=== PATIENT | female | born 1955 | race Caucasian/White ===

== ENCOUNTER → 2021-02-24 10:54 | Outpatient (CLI) | payer OTHER, SELFPAY ==
[2021-02-24 11:55] LABS: COVID19 -Nasal RAPID Negative (Negative)
== END ==
PROVIDERS: PCP Family Medicine; Referring Provider Internal Medicine; Visit Provider Internal Medicine
DX: Z20.822 Contact with and (suspected) exposure to COVID-19 (principal)
CPT/HCPCS: 87635; C9803

== ENCOUNTER → 2021-02-24 11:02 | Outpatient (CLI) | payer OTHER, SELFPAY ==
--- NOTE | 2021-02-25 16:20 | PM.PFT.1 ---
Pulmonary Function Test Referral & Results Date Patient Seen: 02/24/21 Requesting provider: Kelly Aldana Results: The spirometry demonstrates an FVC of 2.95 L which is 93% of predicted. The FEV1 was measured at 1.82 L which is 75% of predicted. The FEV1/FVC ratio was 62 which is 80% of predicted. Following the administration of bronchodilator there was no appreciable change. Lung volumes show an SVC of 3.15 L which is 106% of predicted. The diffusing capacity was measured at 10.60 which is 43% of predicted. No hemoglobin value was provided, so no correction for potential anemia could be made, if appropriate. The maximum voluntary ventilation was reduced Interpretation: This study demonstrates moderate obstructive lung disease based on reduction FEV1. There is no evidence of significant benefit following bronchodilator administration Lung volumes are normal Diffusing capacity is severely reduced suggesting significant disease at the capillary alveolar level
== END ==
PROVIDERS: PCP Family Medicine; Referring Provider Family Medicine; Visit Provider Family Medicine
DX: R06.02 Shortness of breath (principal); Z20.822 Contact with and (suspected) exposure to COVID-19
CPT/HCPCS: 87635; 94060; 94726; 94729; C9803

== ENCOUNTER → 2021-07-22 08:43 | Outpatient (CLI) | payer OTHER, SELFPAY ==
[2021-07-22 09:38] LABS: COVID19 -Nasal RAPID Negative (Negative)
== END ==
PROVIDERS: PCP Family Medicine; Visit Provider Nurse Practitioner
DX: Z20.822 Contact with and (suspected) exposure to COVID-19 (principal); R09.81 Nasal congestion
CPT/HCPCS: 87635

== ENCOUNTER → 2022-04-01 16:43 | Outpatient (CLI) | payer MEDICARE, SELFPAY ==
[2022-04-01 17:28] LABS: Influenza A - CEPHEID Flu A NEGATIVE (NEGATIVE); Influenza B - CEPHEID Flu B NEGATIVE (NEGATIVE)
== END ==
PROVIDERS: PCP Family Medicine; Visit Provider Physician Assistant
DX: J06.9 Acute upper respiratory infection, unspecified (principal)
CPT/HCPCS: 87502

== ENCOUNTER → 2023-02-17 09:12 | Outpatient (CLI) | payer MEDICARE, SELFPAY ==
[2023-02-17 09:49] LABS: Hematocrit 40.8 % (36-46); Hemoglobin 13.9 g/dL (12.0-16.0); Mean Corpuscular HGB Conc 34.2 % (30-36); Mean Corpuscular Volume 99.5 fL (80-100); Platelet Count 293 X10^3/uL (150-400); Red Cell Distribution Width 12.5 % (11.6-14.8); White Blood Cell Count 8.3 X10^3/uL (4.5-11.0)
[2023-02-17 10:05] LABS: Alanine Aminotransferase 20 IU/L (<35); Albumin 4.4 g/dL (3.5-5.0); Albumin Globulin Ratio 1.6 (1.0-2.8); Alkaline Phosphatase 99 U/L (38-126); Aspartate Aminotransferase 21 IU/L (14-36); BUN Creatinine Ratio 23.1 (6-22); Bilirubin Total 0.6 mg/dL (0.2-1.3); Blood Urea Nitrogen 12 mg/dL (7-17); Calcium 9.3 mg/dL (8.4-10.2); Carbon Dioxide 28 mmol/L (22-32); Chloride 101 mmol/L (98-107); Cholesterol 184 mg/dL (140-199); Estimated Glomerular Filt Rate > 60 mL/min (>60); Globulin 2.7 g/dL (1.7-4.1); Glucose 104 mg/dL (80-110); HDL Cholesterol 68 mg/dL (40-60); HEMOLYSIS < 15 (0-50); LDL Cholesterol Calculated 90 mg/dL (<100); Potassium 3.9 mmol/L (3.4-5.1); Sodium 138 mmol/L (137-145); Total Protein 7.1 g/dL (6.3-8.2); Triglycerides 131 mg/dL (35-150)
[2023-02-17 10:56] LABS: Vitamin B12 689 pg/mL (239-931)
== END ==
PROVIDERS: PCP Family Medicine; Referring Provider Family Medicine; Visit Provider Family Medicine
DX: E53.8 Deficiency of other specified B group vitamins (principal); I10 Essential (primary) hypertension; I69.398 Other sequelae of cerebral infarction; E78.70 Disorder of bile acid and cholesterol metabolism, unspecified
CPT/HCPCS: 36415; 80053; 80061; 82607; 85027

== ENCOUNTER → 2023-12-26 08:13 | Outpatient (CLI) | payer MEDICARE, SELFPAY ==
[2023-12-26 09:16] LABS: Alanine Aminotransferase 16 IU/L (<35); Albumin 4.4 g/dL (3.5-5.0); Albumin Globulin Ratio 1.6 (1.0-2.8); Alkaline Phosphatase 90 U/L (38-126); Aspartate Aminotransferase 21 IU/L (14-36); Bilirubin Total 0.5 mg/dL (0.2-1.3); Blood Urea Nitrogen 11 mg/dL (7-17); Calcium 9.5 mg/dL (8.4-10.2); Carbon Dioxide 27 mmol/L (22-32); Chloride 105 mmol/L (98-107); Estimated Glomerular Filt Rate > 60 mL/min (>60); Globulin 2.7 g/dL (1.7-4.1); Glucose 99 mg/dL (80-110); HEMOLYSIS < 15 (0-50); Potassium 3.8 mmol/L (3.4-5.1); Sodium 139 mmol/L (137-145); Total Protein 7.1 g/dL (6.3-8.2)
[2023-12-27 06:52] LABS: Cholesterol HDL Ratio 3.3 ratio (0.0-4.4); Cholesterol,Total 169 mg/dL (100-199); HDL Cholesterol 52 mg/dL (>39); LDL Cholesterol Cal 85 mg/dL (0-99); Triglycerides 188 mg/dL (0-149); VLDL Cholesterol Cal 32 mg/dL (5-40)
== END ==
PROVIDERS: PCP Family Medicine; Referring Provider Family Medicine; Visit Provider Family Medicine
DX: E78.00 Pure hypercholesterolemia, unspecified (principal); I10 Essential (primary) hypertension
CPT/HCPCS: 36415; 80053; 80061

== ENCOUNTER 2024-07-16 09:10 | Emergency (ER) | payer MEDICARE, SELFPAY ==
[2024-07-16] VITALS (17 sets, daily range): BP systolic 130–151; BP diastolic 63–83; PULSE 77–91; RESP 14; TEMP 36.7; O2SAT 94–98; BMI 25.0
--- NOTE | 2024-07-16 09:18 | DI.RAD.S_ITS ---
PROCEDURE: XR SHOULDER LT 2V INDICATIONS: fall/pain/bruising TECHNIQUE: 2 views of the shoulder were acquired. COMPARISON: None. FINDINGS: Mildly displaced acute appearing fracture of mild diffuse osteopenia. Mild degenerative changes left acromioclavicular and glenohumeral joints with joint space narrowing. No dislocation or high attenuation soft tissue foreign body. Artifacts from overlying clothing and other extrinsic artifacts partially limit radiographic detail. Bones: No fractures or dislocations. No suspicious bony lesions. Visualized ribs appear intact. Soft tissues: No suspicious soft tissue calcifications. IMPRESSION: Acute appearing fracture left distal clavicle. Follow-up suggested Dictated by: Kenneth Esposito M.D. on 07/16/2024 at 10:08 Approved by: Kenneth Esposito M.D. on 07/16/2024 at 10:15
--- NOTE | 2024-07-16 09:54 | ED.FALL ---
HPI - Fall General Chief Complaint: Fall Stated Complaint: fell yesterday left shoulder Time Seen by Provider: 07/16/24 09:37 Source: patient Mode of arrival: Wheelchair Limitations: no limitations History of Present Illness HPI Narrative: 69-year-old female history of hypertension, dyslipidemia, prior stroke with left upper extremity deficit on aspirin daily, COPD who presents after a fall yesterday. Patient states her family left town to travel to [facility]. She had gotten up was walking through 1 of the rooms and looked behind her to check of the dogs were behind her and lost her balance and fell onto her left side hitting her left head and shoulder. Patient states she has bruising of the left head and I, has pain at the left shoulder but can move her arm. She also has some mild pain in left hip and quite a bit of bruising but states she can move it very well. Patient has been able to ambulate since then. She states no loss of consciousness had a mild headache afterwards, no neck pain, no vision changes no chest pain or shortness of breath. No nausea or vomiting. Patient denies any other GI or urinary symptoms. She does take an aspirin daily denies any other anticoagulants. Does have chronic weakness and some contraction of the left upper extremity. Patient states her family is out of town but her daughter has been informed and has been in touch with multiple people to check on her. Patient drove herself today initially went to the walk-in clinic and was referred here. Related Data Home Medications Medication Instructions Recorded Confirmed alprazolam 0.5 mg tablet mg PO 07/16/24 07/16/24 amlodipine 5 mg tablet 5 mg PO DAILY 07/16/24 07/16/24 bupropion HCl 300 mg 24 hr tablet, 300 mg PO DAILY 07/16/24 07/16/24 extended release fluoxetine 10 mg capsule 10 mg PO DAILY 07/16/24 07/16/24 pantoprazole 40 mg tablet,delayed 40 mg PO DAILY 07/16/24 07/16/24 release pravastatin 20 mg tablet 20 mg PO DAILY 07/16/24 07/16/24 Allergies Allergy/AdvReac Type Severity Reaction Status Date / Time No Known Drug Allergies Allergy Verified 07/16/24 09:17 Review of Systems Review of Systems ROS Unobtainable: All systems reviewed & are unremarkable except as noted in HPI and below Patient History Social History Smoking Status: Former smoker Smoking Status: Former smoker alcohol intake frequency: holidays/special occasions only Substance Use Type: does not use Exam Narrative Exam Narrative: GEN: Patient appears in mild distress. HEAD: Patient has some left temporal ecchymosis as well as left periorbital ecchymosis, no raccoon/Iyer sign. NECK: Nontender, painless range of motion, trachea midline Negative Nexus criteria, negative line tenderness, distracting injury, altered mental status, neuro deficit, recent EtOH. EYES: PERRLA, EOMI ENT: External inspection normal except for periorbital ecchymosis, no significant swelling of the lid, trachea is midline, TM's are normal no hemotypanum, Nares are clear, no septal hematoma, no dental or oral injury, airway is normal and with normal occlusion, No bony tenderness RESP: Chest is nontender and has symmetric movement, no ecchymosis, breath sounds are normal no crackles, wheezes or rales CVS: Heart sounds are normal, no murmur noted, No JVD. ABG/GI: Nontender, soft, normal bowel sounds, no distention, no organomegaly, pelvic rock is negative NEURO: Oriented AOx3, neuro is grossly intact, sensation and motor is normal all 4 extremities moving, cranial nerves II through XII are intact, GCS is 15 PSYCH: Normal mood and affect SKIN: No lacerations appreciated patient does have ecchymosis of the left forehead periorbital, left clavicle region and hip., warm and dry, no crepitus and without decubitus BACK: No CVA tenderness, no vertebral tenderness, no step-off's, no crepitus EXT: Patient has ecchymosis of the left clavicle and AC region, she was good range of motion she is tender over the distal clavicle,, hips are nontender, no pedal edema, normal color and temperature, normal range of motion of extremities with normal tendon exam, 2+ pulses in all four extremities Initial Vital Signs Initial Vital Signs: Vital Signs Temperature 98.0 F 07/16/24 09:11 Pulse Rate 85 07/16/24 09:11 Respiratory Rate 14 07/16/24 09:11 Blood Pressure 145/76 H 07/16/24 09:11 Pulse Oximetry 96 07/16/24 09:11 Oxygen Delivery Method Room Air 07/16/24 09:11 Course Orders Ordered: ED Orders 07/16/24 09:18 XR shoulder LT min 2V Stat 07/16/24 10:04 CT cervical spine wo con Stat CT head/brain wo con Stat 07/16/24 10:09 CT facial bones wo con Stat 07/16/24 14:00 CT head/brain wo con Stat Vital Signs Vital signs: Vital Signs - 8 hr 07/16/24 09:11 07/16/24 09:40 07/16/24 09:40 Temperature 98.0 F Pulse Rate 85 90 Respiratory Rate 14 Blood Pressure 145/76 H 141/75 H Pulse Oximetry 96 94 Oxygen Delivery Method Room Air 07/16/24 10:00 07/16/24 10:22 07/16/24 10:22 Temperature Pulse Rate 88 83 Respiratory Rate Blood Pressure 149/70 H Pulse Oximetry 95 94 Oxygen Delivery Method 07/16/24 10:30 07/16/24 10:30 07/16/24 11:00 Temperature Pulse Rate 79 84 Respiratory Rate Blood Pressure 137/63 Pulse Oximetry 95 94 Oxygen Delivery Method 07/16/24 11:00 07/16/24 11:30 07/16/24 11:30 Temperature Pulse Rate 82 Respiratory Rate Blood Pressure 132/68 136/63 Pulse Oximetry 95 Oxygen Delivery Method 07/16/24 11:40 07/16/24 12:00 07/16/24 12:00 Temperature Pulse Rate 86 Respiratory Rate Blood Pressure 151/67 H 136/83 Pulse Oximetry 96 Oxygen Delivery Method 07/16/24 12:30 07/16/24 12:31 07/16/24 12:31 Temperature Pulse Rate 77 85 Respiratory Rate Blood Pressure 130/68 Pulse Oximetry 97 97 Oxygen Delivery Method 07/16/24 13:00 07/16/24 13:00 07/16/24 13:30 Temperature Pulse Rate 83 90 Respiratory Rate Blood Pressure 133/77 Pulse Oximetry 97 98 Oxygen Delivery Method 07/16/24 13:30 07/16/24 14:30 07/16/24 14:35 Temperature Pulse Rate 88 87 Respiratory Rate Blood Pressure 143/75 H Pulse Oximetry 96 96 Oxygen Delivery Method 07/16/24 14:35 07/16/24 15:00 07/16/24 15:00 Temperature Pulse Rate 91 H Respiratory Rate Blood Pressure 139/70 145/67 H Pulse Oximetry 96 Oxygen Delivery Method 07/16/24 15:30 07/16/24 15:30 Temperature Pulse Rate 87 Respiratory Rate Blood Pressure 144/72 H Pulse Oximetry 94 Oxygen Delivery Method MDM - Fall Imaging Data Extremity x-ray #1: Radiologist's Impression: Close Head CT (Signed) KevinDaniel 07/16/[address] (Signed) Kenneth Esposito 07/16/[address] (Signed) Kenneth Esposito 07/16/[address] (Signed) KevinDaniel 07/16/24 Shoulder X-Ray (Signed) Kenneth Esposito 07/16/24 PFT Result 02/24/21 [place] [address] XRay Report Signed Patient: Anna Pinzon MR#: [id number] : 1955 Acct:[id number] Age/Sex: 69 / F Date of Service: 07/16/24 Loc: ED Accession Number: [id number] Procedure: XR shoulder LT min 2V Ordering Provider: Corry Aguila D.O. PROCEDURE: XR SHOULDER LT 2V INDICATIONS: fall/pain/bruising TECHNIQUE: 2 views of the shoulder were acquired. COMPARISON: None. FINDINGS: Mildly displaced acute appearing fracture of mild diffuse osteopenia. Mild degenerative changes left acromioclavicular and glenohumeral joints with joint space narrowing. No dislocation or high attenuation soft tissue foreign body. Artifacts from overlying clothing and other extrinsic artifacts partially limit radiographic detail. Bones: No fractures or dislocations. No suspicious bony lesions. Visualized ribs appear intact. Soft tissues: No suspicious soft tissue calcifications. IMPRESSION: Acute appearing fracture left distal clavicle. Follow-up suggested Dictated by: Kenneth Esposito M.D. on 07/16/2024 at 10:08 Approved by: Kenneth Esposito M.D. on 07/16/2024 at 10:15 CT scan - head: Radiologist's Impression: Close Head CT (Signed) Daniel Brown 07/16/[address] (Signed) Kenneth Esposito 07/16/[address] (Signed) Kenneth Esposito 07/16/[address] (Signed) Daniel Brown 07/16/24 Shoulder X-Ray (Signed) Kenneth Esposito - 07/16/24 PFT Result 02/24/21 [facility] [address] [address] [address] Scan Report Signed Patient: Anna Pinzon MR#: [id number] : 1955 Acct:[id number] Age/Sex: 69 / F Date of Service: 07/16/24 Loc: ED Accession Number: [id number] Procedure: CT head/brain wo con Ordering Provider: Corry Aguila D.O. PROCEDURE: CT HEAD/BRAIN WO CON INDICATIONS: repeat head CT TECHNIQUE: Noncontrast 4.5 mm thick angled axial sections acquired from the foramen magnum to the vertex, with coronal and sagittal reformats. For radiation dose reduction, the following was used: automated exposure control, adjustment of mA and/or kV according to patient size. COMPARISON: [facility], CT, CT HEAD/BRAIN WO CON, 07/16/2024, 10:16. FINDINGS: Image quality: Diagnostic. CSF spaces: Basal cisterns are patent. No extra-axial fluid collections. The ventricles are symmetric in size and shape. Brain: Persistent hyperdensity involving left frontal lobe cortex concerning for contusion. This is not significantly changed from earlier study. No new area of abnormal hyperdensity is seen. Old infarction is again noted in right basal ganglia. There is cerebral volume loss for age, with resultant ventricular and sulcal prominence. There are periventricular and deep white matter chronic small vessel ischemic changes. There is intracranial internal carotid artery atherosclerosis. Skull and face: Left frontal scalp hematoma is again seen. Calvarium and visualized facial bones appear intact, without suspicious lesions. Sinuses: Visualized sinuses and mastoids are clear. IMPRESSION: 1. Stable appearance of subtle hyperdensity involving left frontal lobe concerning for parenchymal contusion. No new area of intracranial bleed. 2. Stable old infarction in right basal ganglia. No midline shift or significant mass effect. 3. Left frontal scalp hematoma unchanged from earlier study. No gross acute skull fracture. Dictated by: Daniel Brown M.D. on 07/16/2024 at 14:21 Approved by: Danile Brown M.D. on 07/16/2024 at 14:[address]: Radiologist's Impression: Anna Pinzon??69??F??1955 ? Allergy/Adv: No Known Drug Allergies Close Head CT (Signed) KevinDaniel - 07/16/[address] (Signed) VaibhavKenneth - 07/16/[address] (Signed) Kenneth Esposito - 07/16/[address] (Signed) Daniel Brown - 07/16/24 Shoulder X-Ray (Signed) VaibhavKenneth - 07/16/24 PFT Result 02/24/21 [place] [address] CT Scan Report Signed Patient: Anna Pinzon MR#: [id number] : 1955 Acct:[id number] Age/Sex: 69 / F Date of Service: 07/16/24 Loc: ED Accession Number: [id number] Procedure: CT head/brain wo con Ordering Provider: Corry Aguila D.O. PROCEDURE: CT HEAD/BRAIN WO CON INDICATIONS: fall, hit head bruising face, eye on aspirin TECHNIQUE: Noncontrast 4.5 mm thick angled axial sections acquired from the foramen magnum to the vertex, with coronal and sagittal reformats. For radiation dose reduction, the following was used: automated exposure control, adjustment of mA and/or kV according to patient size. COMPARISON: None. FINDINGS: Several small 2 mm-3 mm foci of high attenuation in the left frontal lobe suspicious for parenchymal contusions or small subarachnoid blood, rarely calcifications (most notably series 2, image 21). Hounsfield units approximately 50-60 correlate with blood. There is asymmetric prominence of the left frontal gyri laterally relative to the right which is most likely related to volume loss from a chronic right external capsule, marie radiata infarct, however rarely the asymmetry could be related to an underlying left frontal mass lesion and MRI without and with contrast would be useful for further evaluation. Associated minimal midline shift towards the right of 2 mm. Left anterolateral frontal soft tissue scalp swelling/hematoma 1 cm depth. Image quality: Diagnostic. CSF spaces: Basal cisterns are patent. No extra-axial fluid collections. Sinuses: Visualized sinuses and mastoids are clear. IMPRESSION: Several small foci of high attenuation in the left frontal lobe suspicious for parenchymal contusions, small subarachnoid blood, rarely parenchymal calcifications. Follow-up suggested. Asymmetric prominence of the left frontal gyri as discussed above, most likely related to volume loss from a chronic right external capsule infarct, however rarely an underlying left frontal mass lesion could give this appearance and MRI without and with contrast would be useful for further evaluation. Left frontal soft tissue scalp swelling/hematoma. No CT evidence of subdural or epidural hematoma. Dictated by: Kenneth Esposito M.D. on 07/16/2024 at 10:31 Approved by: Kenneth Esposito M.D. on 07/16/2024 at 10:53 CT - cervical spine: Radiologist's Impression: Anna Pinzon??69??F??1955 ? Allergy/Adv: No Known Drug Allergies Close Head CT (Signed) Daniel Brown 07/16/[address] (Signed) Kenneth Esposito 07/16/[address] (Signed) Kenneth Esposito 07/16/[address] (Signed) Daniel Brown 07/16/24 Shoulder X-Ray (Signed) Kenneth Esposito - 07/16/24 PFT Result 02/24/21 [place] [address] CT Scan Report Signed Patient: Anna Pinzon MR#: [id number] : 1955 Acct:[id number] Age/Sex: 69 / F Date of Service: 07/16/24 Loc: ED Accession Number: [id number] Procedure: CT head/brain wo con Ordering Provider: Corry Aguila D.O. PROCEDURE: CT HEAD/BRAIN WO CON INDICATIONS: fall, hit head bruising face, eye on aspirin TECHNIQUE: Noncontrast 4.5 mm thick angled axial sections acquired from the foramen magnum to the vertex, with coronal and sagittal reformats. For radiation dose reduction, the following was used: automated exposure control, adjustment of mA and/or kV according to patient size. COMPARISON: None. FINDINGS: Several small 2 mm-3 mm foci of high attenuation in the left frontal lobe suspicious for parenchymal contusions or small subarachnoid blood, rarely calcifications (most notably series 2, image 21). Hounsfield units approximately 50-60 correlate with blood. There is asymmetric prominence of the left frontal gyri laterally relative to the right which is most likely related to volume loss from a chronic right external capsule, marie radiata infarct, however rarely the asymmetry could be related to an underlying left frontal mass lesion and MRI without and with contrast would be useful for further evaluation. Associated minimal midline shift towards the right of 2 mm. Left anterolateral frontal soft tissue scalp swelling/hematoma 1 cm depth. Image quality: Diagnostic. CSF spaces: Basal cisterns are patent. No extra-axial fluid collections. Sinuses: Visualized sinuses and mastoids are clear. IMPRESSION: Several small foci of high attenuation in the left frontal lobe suspicious for parenchymal contusions, small subarachnoid blood, rarely parenchymal calcifications. Follow-up suggested. Asymmetric prominence of the left frontal gyri as discussed above, most likely related to volume loss from a chronic right external capsule infarct, however rarely an underlying left frontal mass lesion could give this appearance and MRI without and with contrast would be useful for further evaluation. Left frontal soft tissue scalp swelling/hematoma. No CT evidence of subdural or epidural hematoma. Dictated by: Kenneth Esposito M.D. on 07/16/2024 at 10:31 Approved by: eKnneth Esposito M.D. on 07/16/2024 at 10:[address]: Radiologist's Impression: Close Head CT (Signed) Daniel Brown - 07/16/[address] (Signed) Kenenth Esposito 07/16/[address] (Signed) Kenneth Esposito 07/16/[address] (Signed) Daniel Brown - 07/16/24 Shoulder X-Ray (Signed) Kenneth Esposito - 07/16/24 PFT Result 02/24/21 [place] [address] CT Scan Report Signed Patient: Anna Pinzon MR#: [id number] : 1955 Acct:[id number] Age/Sex: 69 / F Date of Service: 07/16/24 Loc: ED Accession Number: [id number] Procedure: CT facial bones wo con Ordering Provider: Corry Aguila D.O. PROCEDURE: CT FACIAL BONES WO CON INDICATIONS: periorbital ecchymosis, trauma, fall TECHNIQUE: Noncontrast 2.5 mm thick axial images acquired from the mandible through the frontal sinuses, with coronal and sagittal reformatting. For radiation dose reduction, the following was used: automated exposure control, adjustment of mA and/or kV according to patient size. COMPARISON: None. FINDINGS: Left anterior frontal soft tissue scalp swelling/hematoma 1 cm depth. Image quality: Excellent. There are some beam hardening artifacts related to metallic dental hardware. There Bones and teeth: Orbital jonas are intact. Sinus jonas show no fracture or deformity. Nasal bones and septum are intact. Visualized portions of the mandible demonstrate no fractures or subluxation. Zygomatic arches are intact. Pterygoid plates are intact. Visualized portions of the skull base and auditory canals are intact. Sinuses: Mild mucoperiosteal thickening with frothy material in the left sphenoid sinus without air-fluid level to suggest acute sinusitis. 4 mm round retention cyst or polyp left maxillary sinus. Mastoid air cells are aerated. Soft tissues: No edema, masses, or fluid collections. No enlarged lymph nodes. No soft tissue lacerations or debris. IMPRESSION: Left anterior frontal soft tissue scalp swelling/hematoma 1 cm depth. Mild mucoperiosteal thickening with frothy material left sphenoid sinus without air-fluid level. No CT evidence of fracture. Dictated by: Kenneth Esposito M.D. on 07/16/2024 at 10:54 Approved by: Kenneth Esposito M.D. on 07/16/2024 at 11:09 MDM Narrative Medical decision making narrative: 69-year-old female ground level fall approximately 12+ hours ago patient has appears to be a left clavicle fracture on imaging, no loss of consciousness does have quite a bit of bruising periorbital end of her left temporal region. She takes an aspirin daily but no other anticoagulants head CT and CT C-spine were obtained as well as facial bones. Initial head CT shows several small foci concerning for bleed, asymmetric prominence left frontal gyri left frontal scalp hematoma/swelling. CT cervical spine shows no acute change moderate of degenerative disc disease throughout notably at C5-6 and C6-7. Moderate dextroscoliosis of the thoracic spine partially visualized. Facial bone CT shows left anterior frontal tissue scalp swelling hematoma 1 cm depth mild mucoperiosteal thickening frothy material left sphenoid sinus without air-fluid level no evidence of fracture. Shoulder x-ray shows acute appearing fracture left distal clavicle. Patient was placed in a sling for her clavicle fracture. 1106: Rads called with head CT results some small foci concerning for parenchymal bleed that are 2 mm versus small subarachnoid. They do note some asymmetry that is all in the left side as well as an old right infarct. 2 mm midline shift is noted. They note that there may just be some asymmetrical changes but would recommend an MR at some point to evaluate for mass or other underlying change outside of the small foci of potential bleed. 1131, spoke with coordinator [facility]. Images pushed to [facility], consult with Neurosurgery. Waiting call back. 1150: Spoke with Neurosurgery, Dr. Jackson at [facility] reviewed images, would recommend 4 hour repeat if no acute changes patient can discharge but hold aspirin for 5 days. Discussed concerns from Radiology about asymmetry on the left, he states this looks like normal post bleed changes and does not feel that MR is required. Updated with patient she feels comfortable this plan. She was friends at bedside her daughter is also on the phone during this discussion. Repeat head CT shows no acute change or worsening changes. Appears stable. Patient has not had any other new changes here in the department. Discussed with patient she feels comfortable with discharge home discussed report from initial about concern for MR at some point, also discussed neurosurgery thought this was typical changes secondary to bleed so would recommend follow up for repeat head CT to make sure resolution of changes. If necessary can follow up with primary care for MR if that has not occurred. Discussed all these findings with patient. Discussed return precautions. She does have someone spinning in the night with her. She is aware to hold her aspirin any NSAIDs for the next 5 days. Discharge Plan Departure Patient Disposition: Home Clinical Impression: Periorbital ecchymosis of left eye, Head injury Fracture, clavicle Qualifiers: Encounter type: initial encounter Fracture type: closed Laterality: left Instructions: DI for Clavicle Fracture-Adult, Closed Head Injury Activity Restrictions/Additional Instructions: Your imaging showed 2 small areas of bleed on the left frontal region as well as some asymmetry, I spoke with Neurosurgery about this and on your repeat head CT there are no new changes. This means you had a small intraparenchymal bleed, hold your aspirin for the next 5 days,no other anticoagulants and I would avoid NSAIDs for the next 5 days as well. Your initial head CT radiology was concerned about some asymmetry and recommended an MRI. I discussed this with the neurosurgeon who said the asymmetry was expected with a small amount of bleed and that you did not require an MRI for follow-up. You have a left clavicle fracture, you can use sling as needed. Follow up with your physician but this will take about 8-12 weeks to fully heal. You can take Tylenol up to a 1000 mg every 6 hours as needed for pain. Please return for any new or worsening headaches, any new bleeding or bruising, sudden vision changes, numbness tingling or weakness, difficulty with speech, vomiting, difficulty with ambulation or other or new concerning changes. Prescriptions: No Action pantoprazole 40 mg tablet,delayed release (DR/EC) 40 mg PO DAILY bupropion HCl 300 mg tablet extended release 24 hr 300 mg PO DAILY pravastatin 20 mg tablet 20 mg PO DAILY fluoxetine 10 mg capsule 10 mg PO DAILY amlodipine 5 mg tablet 5 mg PO DAILY alprazolam 0.5 mg tablet PO Referrals: Kelly Aldana MD [Primary Care Provider] - Stand Alone Forms: Patient Portal/API
--- NOTE | 2024-07-16 10:04 | DI.CT.S_ITS ---
PROCEDURE: CT HEAD/BRAIN WO CON INDICATIONS: fall, hit head bruising face, eye on aspirin TECHNIQUE: Noncontrast 4.5 mm thick angled axial sections acquired from the foramen magnum to the vertex, with coronal and sagittal reformats. For radiation dose reduction, the following was used: automated exposure control, adjustment of mA and/or kV according to patient size. COMPARISON: None. FINDINGS: Several small 2 mm-3 mm foci of high attenuation in the left frontal lobe suspicious for parenchymal contusions or small subarachnoid blood, rarely calcifications (most notably series 2, image 21). Hounsfield units approximately 50-60 correlate with blood. There is asymmetric prominence of the left frontal gyri laterally relative to the right which is most likely related to volume loss from a chronic right external capsule, marie radiata infarct, however rarely the asymmetry could be related to an underlying left frontal mass lesion and MRI without and with contrast would be useful for further evaluation. Associated minimal midline shift towards the right of 2 mm. Left anterolateral frontal soft tissue scalp swelling/hematoma 1 cm depth. Image quality: Diagnostic. CSF spaces: Basal cisterns are patent. No extra-axial fluid collections. Sinuses: Visualized sinuses and mastoids are clear. IMPRESSION: Several small foci of high attenuation in the left frontal lobe suspicious for parenchymal contusions, small subarachnoid blood, rarely parenchymal calcifications. Follow-up suggested. Asymmetric prominence of the left frontal gyri as discussed above, most likely related to volume loss from a chronic right external capsule infarct, however rarely an underlying left frontal mass lesion could give this appearance and MRI without and with contrast would be useful for further evaluation. Left frontal soft tissue scalp swelling/hematoma. No CT evidence of subdural or epidural hematoma. Dictated by: Kenneth Esposito M.D. on 07/16/2024 at 10:31 Approved by: Kenneth Esposito M.D. on 07/16/2024 at 10:53
--- NOTE | 2024-07-16 10:04 | DI.CT.S_ITS ---
PROCEDURE: CT CERVICAL SPINE WO CON INDICATIONS: fall, hit head bruising face, eye on asa TECHNIQUE: Noncontrast 3 mm thick sections acquired from the skull base to the T4 level. Sagittal and coronal reformats were then constructed. For radiation dose reduction, the following was used: automated exposure control, adjustment of mA and/or kV according to patient size. COMPARISON: None. FINDINGS: Image quality: Excellent. Bones: No fractures or dislocations. There is suggestion of moderate sized rightward curvature of thoracic spine partially visualized on this study. Degenerative endplate changes, loss of disc height and bilateral uncovertebral hypertrophic changes throughout cervical spine is seen. of Visualized superior ribs are intact. Soft tissues: Prevertebral soft tissues are normal in thickness. No paravertebral hematomas. No apical pneumothoraces. IMPRESSION: 1. No acute cervical spine fracture or dislocation. 2. [id number] degenerative disc disease throughout cervical spine more notably at C5-6 and C6-7 levels. 3. Suggestion of moderate dextroscoliosis of thoracic spine partially visualized on this study. Dictated by: Daniel Brown M.D. on 07/16/2024 at 10:45 Approved by: Daniel Brown M.D. on 07/16/2024 at 10:47
--- NOTE | 2024-07-16 10:09 | DI.CT.S_ITS ---
PROCEDURE: CT FACIAL BONES WO CON INDICATIONS: periorbital ecchymosis, trauma, fall TECHNIQUE: Noncontrast 2.5 mm thick axial images acquired from the mandible through the frontal sinuses, with coronal and sagittal reformatting. For radiation dose reduction, the following was used: automated exposure control, adjustment of mA and/or kV according to patient size. COMPARISON: None. FINDINGS: Left anterior frontal soft tissue scalp swelling/hematoma 1 cm depth. Image quality: Excellent. There are some beam hardening artifacts related to metallic dental hardware. There Bones and teeth: Orbital jonas are intact. Sinus jonas show no fracture or deformity. Nasal bones and septum are intact. Visualized portions of the mandible demonstrate no fractures or subluxation. Zygomatic arches are intact. Pterygoid plates are intact. Visualized portions of the skull base and auditory canals are intact. Sinuses: Mild mucoperiosteal thickening with frothy material in the left sphenoid sinus without air-fluid level to suggest acute sinusitis. 4 mm round retention cyst or polyp left maxillary sinus. Mastoid air cells are aerated. Soft tissues: No edema, masses, or fluid collections. No enlarged lymph nodes. No soft tissue lacerations or debris. IMPRESSION: Left anterior frontal soft tissue scalp swelling/hematoma 1 cm depth. Mild mucoperiosteal thickening with frothy material left sphenoid sinus without air-fluid level. No CT evidence of fracture. Dictated by: Kenneth Esposito M.D. on 07/16/2024 at 10:54 Approved by: Kenneth Esposito M.D. on 07/16/2024 at 11:09
--- NOTE | 2024-07-16 14:00 | DI.CT.S_ITS ---
PROCEDURE: CT HEAD/BRAIN WO CON INDICATIONS: repeat head CT TECHNIQUE: Noncontrast 4.5 mm thick angled axial sections acquired from the foramen magnum to the vertex, with coronal and sagittal reformats. For radiation dose reduction, the following was used: automated exposure control, adjustment of mA and/or kV according to patient size. COMPARISON: [facility], CT, CT HEAD/BRAIN WO CON, 07/16/2024, 10:16. FINDINGS: Image quality: Diagnostic. CSF spaces: Basal cisterns are patent. No extra-axial fluid collections. The ventricles are symmetric in size and shape. Brain: Persistent hyperdensity involving left frontal lobe cortex concerning for contusion. This is not significantly changed from earlier study. No new area of abnormal hyperdensity is seen. Old infarction is again noted in right basal ganglia. There is cerebral volume loss for age, with resultant ventricular and sulcal prominence. There are periventricular and deep white matter chronic small vessel ischemic changes. There is intracranial internal carotid artery atherosclerosis. Skull and face: Left frontal scalp hematoma is again seen. Calvarium and visualized facial bones appear intact, without suspicious lesions. Sinuses: Visualized sinuses and mastoids are clear. IMPRESSION: 1. Stable appearance of subtle hyperdensity involving left frontal lobe concerning for parenchymal contusion. No new area of intracranial bleed. 2. Stable old infarction in right basal ganglia. No midline shift or significant mass effect. 3. Left frontal scalp hematoma unchanged from earlier study. No gross acute skull fracture. Dictated by: Daniel Brown M.D. on 07/16/2024 at 14:21 Approved by: Daniel Brown M.D. on 07/16/2024 at 14:23
== END 2024-07-16 15:55 | disposition home or self-care (01) ==
PROVIDERS: Emergency Provider Emergency Medicine; PCP Family Medicine
DX: S42.032A Displaced fracture of lateral end of left clavicle, initial encounter for closed fracture (principal); S00.12XA Contusion of left eyelid and periocular area, initial encounter; S09.90XA Unspecified injury of head, initial encounter; M25.552 Pain in left hip; I10 Essential (primary) hypertension; W18.30XA Fall on same level, unspecified, initial encounter; E78.5 Hyperlipidemia, unspecified; Z86.73 Personal history of transient ischemic attack (TIA), and cerebral infarction without residual deficits; Z79.82 Long term (current) use of aspirin
CPT/HCPCS: 70450; 70486; 72125; 73030; 99284

== ENCOUNTER → 2024-08-06 09:59 | Outpatient (CLI) | payer MEDICARE, SELFPAY ==
--- NOTE | 2024-08-06 | DI.RAD.S_ITS ---
PROCEDURE: XR DEXA AXIAL SKELETON INDICATIONS: VITAMIN D DEFICIENCY COMPARISON: None. FINDINGS: Lumbar Spine: Bone mineral density are 0.961 g/cm2, T score -0.8. Left Hip: Bone mineral density 0.62 g/cm2, T score -2.1. Left Femoral Neck: Bone mineral density is 0.623 g/cm2, T score -2.0 Right Hip: Bone mineral density is 0.709 g/cm2, T score -1.9. Right Femoral Neck: Bone mineral density 0.546 g/cm2, T score -2.7. Fracture Risk Calculation (when applicable): 10-year fracture risk of a major osteoporotic fracture 15 percent and of a hip fracture 3.9 percent. (T score greater or equal to -1.0 to: NORMAL) (T score from -1.1 to -2.4: OSTEOPENIA) (T score less than or equal to -2.5: OSTEOPOROSIS) IMPRESSION: Osteoporosis in the right femoral neck with osteopenia in the left/right hip as well as left femoral neck. Follow-up guidelines as follows: Osteoporosis: Consider a repeat DEXA and Vertebral Fracture Assessment (VFA) exam in 2 years or sooner if medically necessary, to reassess this patient's status. Osteopenia: Consider a repeat DEXA in 2-3 years to reassess this patient's status, or if there is a new clinical indication. Normal: Consider a repeat DEXA in 5 years or sooner, or if there is a new clinical indication. All treatment decisions require clinical judgment and consideration of individual patient factors, including patient preferences, comorbidities, previous drug use, risk factors not captured in the FRAX model (e.g., frailty, falls, vitamin D deficiency, increased bone turnover, interval significant decline in bone density ) and possible under- or over-estimation of fracture risk by FRAX. In addition, the NOF Guide recommends that FDA-approved medical therapies be considered in postmenopausal women and men age >= 50 years with a: * Hip or vertebral (clinical or morphometric) fracture * T-score of <=-2.5 at the spine or hip * Ten-year fracture probability by FRAX of >= 3% for hip fracture or >=20% for major osteoporotic fracture. People with diagnosed cases of osteoporosis or at high risk for fracture should have regular bone mineral density tests. For patients eligible for Medicare, routine testing is allowed once every 2 years. The testing frequency can be increased to one year for patients who have rapidly progressing disease, those who are receiving or discontinuing medical therapy to restore bone mass, or have additional risk factors. Dictated by: Fatemeh Machado M.D. on 08/06/2024 at 14:35 Approved by: Fatemeh Machado M.D. on 08/06/2024 at 14:39
== END ==
PROVIDERS: PCP Family Medicine; Referring Provider Family Medicine; Visit Provider Family Medicine
DX: Z13.820 Encounter for screening for osteoporosis (principal); Z00.00 Encounter for general adult medical examination without abnormal findings; M81.0 Age-related osteoporosis without current pathological fracture; E55.9 Vitamin D deficiency, unspecified; Z78.0 Asymptomatic menopausal state
CPT/HCPCS: 77080

== ENCOUNTER → 2024-12-17 12:23 | Outpatient (CLI) | payer MEDICARE, OTHER, SELFPAY ==
[2024-12-18 14:51] LABS: Influenza A - CEPHEID Flu A NEGATIVE (NEGATIVE); Influenza B - CEPHEID Flu B NEGATIVE (NEGATIVE); Respiratory Syncytial Virus Negative (Negative)
[2024-12-18 14:54] LABS: COVID-19 CEPHEID 4-PLEX PCR Negative (Negative)
== END ==
PROVIDERS: PCP Family Medicine; Visit Provider Student in an Organized Health Care Education/Training Program
DX: R05.1 Acute cough (principal)
CPT/HCPCS: 0241U

== ENCOUNTER 2024-12-17 13:04 | Emergency (ER) | payer MEDICARE, OTHER, SELFPAY ==
[2024-12-17] VITALS (13 sets, daily range): BP systolic 129–165; BP diastolic 64–79; PULSE 81–96; RESP 18; TEMP 37; O2SAT 91–95; BMI 24.3
--- NOTE | 2024-12-17 13:25 | DI.RAD.S_ITS ---
PROCEDURE: XR CHEST 1V INDICATIONS: Shortness of breath TECHNIQUE: One view of the chest was acquired. COMPARISON: None. FINDINGS: Surgical changes and devices: None. Lungs and pleura: Lungs are clear. No pleural effusions or pneumothorax. Mediastinum: Mediastinal contours appear normal. Heart size is normal. Bones and chest wall: No suspicious bony lesions. Overlying soft tissues appear unremarkable. IMPRESSION: No acute cardiopulmonary abnormality is seen. Dictated by: Gus Bowers M.D. on 12/17/2024 at 14:18 Approved by: Gus Bowers M.D. on 12/17/2024 at 14:20
--- NOTE | 2024-12-17 13:25 | EKG_ITS ---
[facility] [address] [place] [address] Test Date: 2024-12-17 Pat Name: Anna Pinzon Department: [facility] Room: Gender: Female Art Instructor: LUZMA : 1955 Requested By: Order Number: [id number] Reading MD: Bertin aSge MD Measurements Intervals [place] Rate: 86 P: 64 UT: 114 QRS: 39 QRSD: 84 T: 9 QT: 362 QTc: 433 Interpretive Statements Normal sinus rhythm ST & T wave abnormality, consider inferior ischemia ST & T wave abnormality, consider anterior ischemia NO PRIOR TRACING Electronically Signed On 12-17-2024 14:02:15 PST by Bertin Sage MD
[2024-12-17 13:51] LABS: Add Manual Diff / Slide Review NO; Basophils Absolute Auto 100 /uL (0-100); Eosinophils Absolute Auto 500 /uL (0-450); Hematocrit 38.6 % (36-46); Hemoglobin 13.1 g/dL (12.0-16.0); Lymphocytes Absolute Auto 1100 /uL (1100-4500); Lymphocytes Percent Auto 13.1 % (25-40); Mean Corpuscular Hemoglobin 34.5 PG (26-34); Mean Corpuscular Volume 101.6 fL (80-100); Monocytes Absolute Auto 600 /uL (0-900); Monocytes Percent Auto 7.1 % (3-14); Neutrophils Absolute Auto 5800 /uL (1500-7000); Neutrophils Percent Auto 72.8 % (50-75); Platelet Count 330 X10^3/uL (150-400)
[2024-12-17 13:53] LABS: INR 1.1 (0.9-1.3); Prothrombin Time 12.6 SECONDS (9.4-12.5)
[2024-12-17 13:59] LABS: Alanine Aminotransferase 23 IU/L (<35); Albumin 4.4 g/dL (3.5-5.0); Albumin Globulin Ratio 1.4 (1.0-2.8); Alkaline Phosphatase 85 U/L (38-126); Aspartate Aminotransferase 28 IU/L (14-36); Bilirubin Total 0.6 mg/dL (0.2-1.3); Blood Urea Nitrogen 10 mg/dL (7-17); Calcium 9.5 mg/dL (8.4-10.2); Carbon Dioxide 21 mmol/L (22-32); Chloride 104 mmol/L (98-107); Estimated Glomerular Filt Rate > 60 mL/min (>60); Globulin 3.1 g/dL (1.7-4.1); Glucose 99 mg/dL (80-110); HEMOLYSIS < 15 (0-50); Lactate (Lactic Acid) 0.8 mmol/L (0.7-2.1); Potassium 3.6 mmol/L (3.4-5.1); Sodium 137 mmol/L (137-145); Total Protein 7.5 g/dL (6.3-8.2)
[2024-12-17 14:11] LABS: NT-proBNP (BNP-Adult 18+) 363 pg/mL (<125); Troponin I < 0.012 ng/mL (0.01-0.034)
[2024-12-17 22:52] LABS: Influenza A - CEPHEID Flu A NEGATIVE (NEGATIVE); Influenza B - CEPHEID Flu B NEGATIVE (NEGATIVE); Respiratory Syncytial Virus Negative (Negative)
[2024-12-17 22:59] LABS: COVID-19 CEPHEID 4-PLEX PCR Negative (Negative)
--- NOTE | 2024-12-17 23:20 | ED_ITS ---
HPI - General Adult General Chief complaint: Shortness of Breath/Dyspnea Stated complaint: Shortness of breath Time Seen by Provider: 12/17/24 20:09 Source: patient Mode of arrival: Wheelchair History of Present Illness HPI narrative: 69-year-old female former smoker, quit early , after 30+ pack year smoking, prior stroke with left-sided hemiparesis, no oxygen requirement, uses inhalers, complains of cough and increasing shortness of breath for the last 4 days, cough productive of yellow-green sputum earlier today. No blood in sputum. Feels short of breath with exertion just walking, when she usually is able to tolerate exertion walking without problems. Denies discomfort in the chest, arm, back. No known exposure to persons with recent respiratory illness symptoms. Related Data Home Medications Medication Instructions Recorded Confirmed alprazolam 0.5 mg tablet mg PO 07/16/24 12/17/24 amlodipine 5 mg tablet 5 mg PO DAILY 07/16/24 12/17/24 bupropion HCl 300 mg 24 hr tablet, 300 mg PO DAILY 07/16/24 12/17/24 extended release fluoxetine 10 mg capsule 10 mg PO DAILY 07/16/24 12/17/24 pantoprazole 40 mg tablet,delayed 40 mg PO DAILY 07/16/24 12/17/24 release pravastatin 20 mg tablet 20 mg PO DAILY 07/16/24 12/17/24 alendronate 70 mg tablet mg PO 12/17/24 12/17/24 fluoxetine 20 mg capsule mg PO DAILY 12/17/24 12/17/24 umeclidinium 62.5 mcg/actuation 1 inh inhalation ONCE 12/17/24 12/17/24 blister powder for inhalation (Incruse Ellipta) Previous Rx's Medication Instructions Recorded prednisone 20 mg tablet 40 mg (2 x 20 mg) PO DAILY 5 days 12/18/24 #10 tabs Allergies Allergy/AdvReac Type Severity Reaction Status Date / Time No Known Drug Allergies Allergy Verified 12/17/24 12:21 Patient History Social History Smoking Status: Former smoker Smoking Status: Former smoker alcohol intake frequency: holidays/special occasions only Exam Narrative Exam Narrative: General: Well-developed patient, in mild distress. HEAD: Atraumatic. Normocephalic. EYES: Pupils equal round and reactive. Extraocular motions intact. No scleral icterus. No injection or drainage. ENT: Nose without bleeding, purulent drainage. Throat without erythema, tonsillar hypertrophy or exudate. Airway patent. NECK: Trachea midline. Non tender CARDIOVASCULAR: Regular rate and rhythm without murmurs, gallops, or rubs. RESPIRATORY: Clear to auscultation. Breath sounds equal bilaterally. No wheezes, rales, or rhonchi. GASTROINTESTINAL: Abdomen soft, non-tender, nondistended. EXTREMITIES: No edema or joint tenderness. BACK: Nontender without deformity or crepitance. No flank tenderness. NEURO: AOx3. Left-sided stroke changes, with atrophy arm and leg, no new neuro changes obvious per patient/daughter SKIN: No rash or erythema of visible areas Initial Vital Signs Initial Vital Signs: Vital Signs Temperature 98.6 F 12/17/24 13:20 Pulse Rate 87 12/17/24 13:20 Respiratory Rate 18 12/17/24 13:20 Blood Pressure 135/65 12/17/24 13:20 Pulse Oximetry 94 12/17/24 13:20 Oxygen Delivery Method Room Air 12/17/24 13:20 Course Orders Ordered: Discontinued Medications Albuterol (Albuterol Hfa Prepack) 1 box MISC DIRECTED ONE Stop: 12/18/24 00:57 Last Admin: 12/18/24 01:20 Dose: 1 box Documented By: OSBALDO Albuterol/Ipratropium (Albuterol/Ipratropium 3 Ml Ampul) 3 ml INH NOW ONE Stop: 12/17/24 23:46 Last Admin: 12/17/24 23:58 Dose: 3 ml Documented By: OSBALDO Methylprednisolone (Methylprednisolone 125 Mg/2 Ml Vial) 125 mg IV NOW ONE Stop: 12/17/24 23:46 Last Admin: 12/17/24 23:55 Dose: 125 mg Documented By: OSBALDO Vital Signs Vital signs: Vital Signs - 8 hr 12/17/24 18:53 12/17/24 19:14 12/17/24 19:30 Pulse Rate 84 Respiratory Rate 18 Blood Pressure 152/72 H 165/79 H 144/67 H Pulse Oximetry 95 Oxygen Delivery Method Room Air 12/17/24 19:30 12/17/24 20:00 12/17/24 20:00 Pulse Rate 81 84 Respiratory Rate Blood Pressure 133/64 Pulse Oximetry 95 93 Oxygen Delivery Method 12/17/24 20:26 12/17/24 20:26 12/17/24 20:30 Pulse Rate 93 H Respiratory Rate Blood Pressure 152/65 H 141/68 H Pulse Oximetry Oxygen Delivery Method 12/17/24 20:30 12/17/24 21:00 12/17/24 21:00 Pulse Rate 85 86 Respiratory Rate Blood Pressure 137/67 Pulse Oximetry 94 91 Oxygen Delivery Method 12/17/24 21:30 12/17/24 21:30 12/17/24 22:00 Pulse Rate 83 Respiratory Rate Blood Pressure 132/72 129/77 Pulse Oximetry 94 Oxygen Delivery Method 12/17/24 22:00 12/17/24 22:30 12/17/24 22:30 Pulse Rate 92 H 96 H Respiratory Rate Blood Pressure 134/65 Pulse Oximetry 93 93 Oxygen Delivery Method 12/17/24 23:00 12/17/24 23:00 12/17/24 23:30 Pulse Rate 89 Respiratory Rate Blood Pressure 135/65 129/65 Pulse Oximetry 91 Oxygen Delivery Method 12/17/24 23:30 12/18/24 00:00 12/18/24 00:00 Pulse Rate 84 89 Respiratory Rate Blood Pressure 118/56 L Pulse Oximetry 93 94 Oxygen Delivery Method 12/18/24 00:30 12/18/24 00:30 12/18/24 00:45 Pulse Rate 88 73 Respiratory Rate Blood Pressure 111/77 Pulse Oximetry 91 94 Oxygen Delivery Method 12/18/24 00:45 Pulse Rate Respiratory Rate Blood Pressure 130/67 Pulse Oximetry Oxygen Delivery Method Medical Decision Making Lab Data Lab results reviewed: Yes I reviewed the patient's lab results. Lab results narrative: White blood cell count 8000, hemoglobin 13.1, platelets adequate. Sodium 137, potassium 3.6, serum CO2 21, chloride 104, BUN 10 with creatinine 0.5, glucose 99. Liver functions and lipase normal. BNP 363 not elevated. Troponin negative/unmeasurable. Swab for COVID/flu/influenza was negative. Lactate 0.8 normal. 12/17/24 13:30 12/17/24 13:30 Labs: Lab Results 12/17/24 12/17/24 12/18/24 Range/Units 13:30 22:07 00:10 WBC 8.0 (4.5-11.0) X10^3/uL RBC 3.80 L (4.0-5.2) X10^6/uL Hgb 13.1 (12.0-16.0) g/dL Hct 38.6 (36-46) % MCV 101.6 H (80-100) fL MCH 34.5 H (26-34) PG MCHC 34.0 (30-36) % RDW 12.0 (11.6-14.8) % Plt Count 330 (150-400) X10^3/uL Neut % (Auto) 72.8 (50-75) % Lymph % (Auto) 13.1 L (25-40) % [place] % (Auto) 7.1 (3-14) % Eos % (Auto) 6.0 H (2-4) % Baso % (Auto) 1.0 (0-2) % Neut # (Auto) 5800 (5404-9606) /uL Lymph # (Auto) 1100 (0371-3551) /uL [place] # (Auto) 600 (0-900) /uL Eos # (Auto) 500 H (0-450) /uL Baso # (Auto) 100 (0-100) /uL PT 12.6 H (9.4-12.5) SECONDS INR 1.1 (0.9-1.3) Sodium 137 (137-145) mmol/L Potassium 3.6 (3.4-5.1) mmol/L Chloride 104 (98-107) mmol/L Carbon Dioxide 21 L (22-32) mmol/L BUN 10 (7-17) mg/dL Creatinine 0.50 L (0.52-1.04) mg/dL Estimated GFR > 60 (>60) mL/min BUN/Creatinine Ratio 20.0 (6-22) Glucose 99 (80-110) mg/dL Lactate 0.8 (0.7-2.1) mmol/L Calcium 9.5 (8.4-10.2) mg/dL Total Bilirubin 0.6 (0.2-1.3) mg/dL AST 28 (14-36) IU/L ALT 23 (<35) IU/L Alkaline Phosphatase 85 (38-126) U/L Troponin I < 0.012 < 0.012 (0.01-0.034) ng/mL NT-Pro-B Natriuret Pep 363 H (<125) pg/mL Total Protein 7.5 (6.3-8.2) g/dL Albumin 4.4 (3.5-5.0) g/dL Globulin 3.1 (1.7-4.1) g/dL Albumin/Globulin Ratio 1.4 (1.0-2.8) SARS-CoV-2 (PCR) Negative (Negative) Influenza A (RT-PCR) Flu a negative (NEGATIVE) Influenza B (RT-PCR) Flu b negative (NEGATIVE) RSV (PCR) Negative (Negative) Imaging Data Chest x-ray: Radiologist's Impression: [address] [address] XRay Report Signed Patient: Anna Pinzon MR#: [id number] : 1955 Acct:[id number] Age/Sex: 69 / F Date of Service: 12/17/24 Loc: ED Accession Number: [id number] Procedure: XR chest 1V Ordering Provider: Teressa Arroyo D.O. PROCEDURE: XR CHEST 1V INDICATIONS: Shortness of breath TECHNIQUE: One view of the chest was acquired. COMPARISON: None. FINDINGS: Surgical changes and devices: None. Lungs and pleura: Lungs are clear. No pleural effusions or pneumothorax. Mediastinum: Mediastinal contours appear normal. Heart size is normal. Bones and chest wall: No suspicious bony lesions. Overlying soft tissues appear unremarkable. IMPRESSION: No acute cardiopulmonary abnormality is seen. Dictated by: Gus Bowers M.D. on 12/17/2024 at 14:18 Approved by: Gus Bowers M.D. on 12/17/2024 at 14:20 ECG Data Attestation: I personally reviewed and interpreted this ECG as follows: Interpretation: Normal sinus rhythm with rate of 86. Nonspecific ST-T changes. SC 114, QRS 84, QTC 433. MDM Narrative Medical decision making narrative: 69-year-old female with history of many pack-year smoking, quit 10+ years ago, history of stroke with residual left hemiparesis, now with 4 days duration of cough, increased shortness of breath, cough productive of yellow-green, no oxygen requirement but feels short of breath with minimal exertion. No wheezing on examination, no crackles, no lower extremity edema. EKG without obvious acute ischemic changes. Troponin negative/unmeasurable. Chest x-ray no acute changes, see radiology report. Lab data: White blood cell count 8000, hemoglobin 13.1, platelets adequate. Sodium 137, potassium 3.6, serum CO2 21, chloride 104, BUN 10 with creatinine 0.5, glucose 99. Liver functions and lipase normal. BNP 363 not elevated. Troponin negative/unmeasurable. Swab for COVID/flu/influenza was negative. Lactate 0.8 normal. Trial of bronchodilator SVN DuoNeb, IV Solu-Medrol. Repeat troponin also negative/unmeasurable. Patient feels better after bronchodilator, was given IV steroid. Tolerated ambulation trial well. Discharged on dispensed albuterol inhaler/spacer, with prescription for oral prednisone pulse. Home with daughter. Recheck in clinic 2 days advised if not improving. Return precautions discussed. Discharge Plan Departure Patient Disposition: Home Clinical Impression: Upper respiratory infection, Shortness of breath, Reactive airway disease Instructions: DI for Asthma -- Adult, DI for Viral Upper Respiratory Infection -- Adult Activity Restrictions/Additional Instructions: Ms Pinzon, Recent cough and shortness of breath. History of remote smoking but for many pack years. Lungs clear on examination, able to speak in full sentences. Chest x-ray without obvious pneumonia changes per Radiology interpretation. EKG and blood testing not suggestive of heart attack at this time. Blood testing in physical exam not suggestive of fluid overload or congestive heart failure at this time. Breathing treatment given, you felt better after the breathing treatment. It is possible you have a viral upper respiratory infection with associated bronchospasm that is causing your shortness of breath. We have some steroids to see if you might respond, IV given in the emergency department, prescription for few more days to take by mouth. Inhaler with spacer to use 2 puffs 4 times daily to help with shortness of breath. Recheck with your regular doctor in the next couple of days if your symptoms are not improving. Return to this/nearest emergency department for any change worsening symptoms or any concerns prior. Thank you for allowing our team to evaluate you today. Prescriptions: New prednisone 20 mg tablet 40 mg PO DAILY 5 Days Qty: 10 0RF No Action pantoprazole 40 mg tablet,delayed release (DR/EC) 40 mg PO DAILY bupropion HCl 300 mg tablet extended release 24 hr 300 mg PO DAILY pravastatin 20 mg tablet 20 mg PO DAILY fluoxetine 10 mg capsule 10 mg PO DAILY amlodipine 5 mg tablet 5 mg PO DAILY alprazolam 0.5 mg tablet PO Incruse Ellipta 62.5 mcg/actuation blister with device 1 inh inhalation ONCE alendronate 70 mg tablet PO fluoxetine 20 mg capsule PO DAILY Referrals: Kelly Aldana MD [Primary Care Provider] - Stand Alone Forms: Patient Portal/API/Survey
[2024-12-17] MEDS: methylPREDNISolone 125 MG/2 ML VIAL IV (23:55)
[2024-12-17] MEDS: ALBUTEROL/IPRATROPIUM 3 ML AMPUL INH (23:58)
[2024-12-18] VITALS: BP 118/56; PULSE 89; O2SAT 94
[2024-12-18 00:30] VITALS: BP 111/77; PULSE 88; O2SAT 91
[2024-12-18 00:41] LABS: Troponin I < 0.012 ng/mL (0.01-0.034)
[2024-12-18 00:45] VITALS: BP 130/67; PULSE 73; O2SAT 94
--- NOTE | 2024-12-18 00:54 | PC.NURSE ---
Patient ambulated with this RN, 25 feet. Patient states feeling better, 88% on RA, with 2 deep breaths and 1 min of sitting, O2 92% RA. Physician aware
[2024-12-18 01:00] VITALS: BP 128/60; PULSE 101; O2SAT 93
[2024-12-18] MEDS: ALBUTEROL HFA PREPACK 1 BOX MISC (01:20)
== END 2024-12-18 01:36 | disposition home or self-care (01) ==
PROVIDERS: Emergency Medicine; Emergency Provider Emergency Medicine; PCP Family Medicine
DX: J06.9 Acute upper respiratory infection, unspecified (principal); R06.02 Shortness of breath; J45.909 Unspecified asthma, uncomplicated; R05.9 Cough, unspecified; Z87.891 Personal history of nicotine dependence
CPT/HCPCS: 0241U; 36415; 71045; 80053; 83605; 83880; 84484; 85025; 85610; 93005; 93010; 96374; 99284; J2919